=== PATIENT | male | born 1960 | race Caucasian/White ===

== ENCOUNTER 2018-02-06 11:37 | Emergency (ER) | payer BC ==
[2018-02-06 11:42] VITALS: RESP 18
[2018-02-06] MEDS ORDERED: SODIUM CHLORIDE 0.9% 1,000 ML IV STA (11:52)
--- NOTE | 2018-02-06 11:58 | ED ---
General Adult HPI - General Chief complaint: Abdominal Pain Stated complaint: Constipation sent by ME Time Seen by Provider: 02/06/18 11:46 Source: patient, RN notes reviewed, old records reviewed Mode of arrival: ambulatory Limitations: no limitations - History of Present Illness Initial comments: 57-year-old male presenting for evaluation of generalized abdominal pain. Pain is been intermittent over the past 3 days. Describes the pain as 3 out of 10 with occasional episodes progressing to 7 out of 10. Describes a sharp and crampy in nature. He does report decreased stool output over the past 3 days. However he has had 2 or 3 loose stools. No vomiting, intermittent nausea and decreased appetite. No fever or chills. No chest pain. No lower extremity pain. No chest pain - Related Data Home Medications Medication Instructions Recorded Confirmed Acetaminophen Tab [Tylenol Tab] 1,000 mg PO Q6HR PRN 02/06/18 02/06/18 Bisacodyl [Dulcolax] 5 mg PO DAILY PRN 02/06/18 02/06/18 Enalapril/Hydrochlorothiazide 1 tab PO BID 02/06/18 02/06/18 [Enalapril-Hctz 10-25 mg Tablet] Allergies Allergy/AdvReac Type Severity Reaction Status Date / Time No Known Allergies Allergy Verified 02/06/18 11:56 Review of Systems ROS Statement: Those systems with pertinent positive or pertinent negative responses have been documented in the HPI. ROS Other: All systems not noted in ROS Statement are negative. Past Medical History Past Medical History: Hypertension History of Any Multi-Drug Resistant Organisms: None Reported Past Surgical History: No Surgical Hx Reported Past Psychological History: No Psychological Hx Reported Smoking Status: Current every day smoker Past Alcohol Use History: Occasional Past Drug Use History: Marijuana General Exam Limitations: no limitations General appearance: alert, in no apparent distress Head exam: Present: atraumatic, normocephalic Eye exam: Present: normal appearance, PERRL ENT exam: Present: normal exam Neck exam: Present: normal inspection. Absent: tenderness, meningismus Respiratory exam: Present: normal lung sounds bilaterally. Absent: respiratory distress, wheezes Cardiovascular Exam: Present: regular rate, normal rhythm GI/Abdominal exam: Present: soft, distended. Absent: tenderness, guarding, rebound Extremities exam: Present: normal inspection, normal capillary refill. Absent: pedal edema Neurological exam: Present: alert, oriented X3, CN II-XII intact. Absent: motor sensory deficit Psychiatric exam: Present: normal affect, normal mood Skin exam: Present: warm, intact, diaphoretic. Absent: cyanosis Course Vital Signs 02/06/18 02/06/18 02/06/18 11:39 11:50 13:09 Temperature 98.2 F Pulse Rate 113 H 106 H 100 Respiratory 18 18 18 Rate Blood Pressure 138/104 160/103 134/97 O2 Sat by Pulse 98 95 94 L Oximetry Medical Decision Making - Medical Decision Making 57-year-old male with crampy generalized abdominal pain, nausea, and several episodes of loose stool. X-ray is nonspecific, no obstruction. Patient has mild leukocytosis and hemoglobin of 18 likely representing some hemoconcentration secondary to dehydration from decreased oral intake. Creatinine mildly elevated above baseline 1.4, normal lactic acid. CT obtained , shows some mild acute pancreatitis however this is not really consistent with examination, there is no epigastric tenderness. No right upper quadrant tenderness. Patient does not drink alcohol. He is reevaluated, continues to have no abdominal tenderness. Vital signs are stable and improved. He will be discharged with oral hydration. Return with worsening or changing symptoms. - Lab Data Result diagrams: 02/06/18 12:21 02/06/18 12:21 Lab Results 02/06/18 02/06/18 02/06/18 Range/Units 12:21 12:21 12:21 WBC 13.1 H (3.8-10.6) k/uL RBC 6.13 H (4.30-5.90) m/uL Hgb 18.4 H (13.0-17.5) gm/dL Hct 53.8 H (39.0-53.0) % MCV 87.7 (80.0-100.0) fL MCH 29.9 (25.0-35.0) pg MCHC 34.1 (31.0-37.0) g/dL RDW 14.0 (11.5-15.5) % Plt Count 244 (150-450) k/uL Neutrophils % 75 % Lymphocytes % 16 % Monocytes % 5 % Eosinophils % 2 % Basophils % 1 % Neutrophils # 9.7 H (1.3-7.7) k/uL Lymphocytes # 2.0 (1.0-4.8) k/uL Monocytes # 0.7 (0-1.0) k/uL Eosinophils # 0.3 (0-0.7) k/uL Basophils # 0.1 (0-0.2) k/uL PT (9.0-12.0) sec INR (<1.2) APTT (22.0-30.0) sec Sodium 138 (137-145) mmol/L Potassium 3.9 (3.5-5.1) mmol/L Chloride 102 (98-107) mmol/L Carbon Dioxide 20 L (22-30) mmol/L Anion Gap 16 mmol/L BUN 28 H (9-20) mg/dL Creatinine 1.42 H (0.66-1.25) mg/dL Est GFR (CKD-EPI)AfAm 64 (>60 ml/min/1.73 sqM) Est GFR (CKD-EPI)NonAf 55 (>60 ml/min/1.73 sqM) Glucose 110 H (74-99) mg/dL Plasma Lactic Acid Greg 1.3 (0.7-2.0) mmol/L Calcium 10.1 (8.4-10.2) mg/dL Total Bilirubin 1.0 (0.2-1.3) mg/dL AST 34 (17-59) U/L ALT 27 (21-72) U/L Alkaline Phosphatase 78 (38-126) U/L Total Protein 8.1 (6.3-8.2) g/dL Albumin 4.7 (3.5-5.0) g/dL Amylase 43 (30-110) U/L Lipase 118 (23-300) U/L 02/06/18 Range/Units 12:21 WBC (3.8-10.6) k/uL RBC (4.30-5.90) m/uL Hgb (13.0-17.5) gm/dL Hct (39.0-53.0) % MCV (80.0-100.0) fL MCH (25.0-35.0) pg MCHC (31.0-37.0) g/dL RDW (11.5-15.5) % Plt Count (150-450) k/uL Neutrophils % % Lymphocytes % % Monocytes % % Eosinophils % % Basophils % % Neutrophils # (1.3-7.7) k/uL Lymphocytes # (1.0-4.8) k/uL Monocytes # (0-1.0) k/uL Eosinophils # (0-0.7) k/uL Basophils # (0-0.2) k/uL PT 10.4 (9.0-12.0) sec INR 1.1 (<1.2) APTT 24.6 (22.0-30.0) sec Sodium (137-145) mmol/L Potassium (3.5-5.1) mmol/L Chloride (98-107) mmol/L Carbon Dioxide (22-30) mmol/L Anion Gap mmol/L BUN (9-20) mg/dL Creatinine (0.66-1.25) mg/dL Est GFR (CKD-EPI)AfAm (>60 ml/min/1.73 sqM) Est GFR (CKD-EPI)NonAf (>60 ml/min/1.73 sqM) Glucose (74-99) mg/dL Plasma Lactic Acid Greg (0.7-2.0) mmol/L Calcium (8.4-10.2) mg/dL Total Bilirubin (0.2-1.3) mg/dL AST (17-59) U/L ALT (21-72) U/L Alkaline Phosphatase (38-126) U/L Total Protein (6.3-8.2) g/dL Albumin (3.5-5.0) g/dL Amylase (30-110) U/L Lipase (23-300) U/L Disposition Clinical Impression: Abdominal pain, Gastroenteritis Disposition: HOME SELF-CARE Condition: Good Instructions: Abdominal Pain (ED), Acute Nausea and Vomiting (ED) Is patient prescribed a controlled substance at d/c from ED?: No Referrals: None,Stated [Primary Care Provider] - 1-2 days Mila Kennedy MD [REFERRING] - 1-2 days Time of Disposition: 13:57
[2018-02-06 12:47] LABS: Basophils # (A) 0.1 k/uL (0-0.2); Basophils % (A) 1 %; Eosinophils # (A) 0.3 k/uL (0-0.7); Eosinophils % (A) 2 %; HCT 53.8 % (39.0-53.0); HGB 18.4 gm/dL (13.0-17.5); Lymphocytes % (A) 16 %; MCH 29.9 pg (25.0-35.0); MCHC 34.1 g/dL (31.0-37.0); MCV 87.7 fL (80.0-100.0); Mean Platelet Volume 7.3; Monocytes # (A) 0.7 k/uL (0-1.0); Monocytes % (A) 5 %; Neutrophils # (A) 9.7 k/uL (1.3-7.7); Neutrophils % (A) 75 %; Platelet Count 244 k/uL (150-450); RBC 6.13 m/uL (4.30-5.90); WBC 13.1 k/uL (3.8-10.6)
[2018-02-06 13:02] LABS: Albumin 4.7 g/dL (3.5-5.0); Calcium 10.1 mg/dL (8.4-10.2); Potassium 3.9 mmol/L (3.5-5.1); Total Protein 8.1 g/dL (6.3-8.2)
[2018-02-06 13:11] LABS: INR 1.1 (<1.2); Partial Thromboplastin Time 24.6 sec (22.0-30.0); Prothrombin Time 10.4 sec (9.0-12.0)
--- NOTE | 2018-02-06 13:14 | XR ---
EXAMINATION TYPE: XR KUB DATE OF EXAM: 02/06/2018 12:47 PM CLINICAL HISTORY: Abdominal pain and constipation for 4 days TECHNIQUE: Single upright image of the abdomen is obtained. COMPARISON: None. FINDINGS: Paucity of bowel gas is seen in the distal colon and rectum. Scattered gas is seen in nondi lated small bowel loops. Gas and fecal material is seen in nondilated colon. There is no visceromegal y, pneumoperitoneum, or abnormal calcification appreciated. The lung bases are clear and the osseous structures are intact. Probable small hiatal hernia seen. IMPRESSION: Although there is a paucity of distal colonic and rectal stool/bowel gas no proximal vivek l dilatation is seen to suggest obstruction.
--- NOTE | 2018-02-06 13:15 | CT ---
EXAMINATION TYPE: CT abdomen pelvis w con DATE OF EXAM: 02/06/2018 COMPARISON: NONE HISTORY: 57-year-old male pain and constipation for 3 days TECHNIQUE: Contiguous axial scanning of the abdomen and pelvis following administration of 100 ml Iso leobardo 300 IV contrast. Delayed images through the kidneys and coronal/sagittal reconstructions performed. CT DLP: 1617.4 mGycm Automated exposure control for dose reduction was used. FINDINGS: Heart normal size with small pericardial fluid. Lung bases clear without pleural effusion. Small hiatal hernia. Liver mildly enlarged at 18.6 cm. Slightly low attenuation may reflect fatty infiltration. Portal zachary ous system is patent. No biliary ductal dilatation. Gallbladder, adrenal glands, kidneys, spleen with anterior splenule within normal limits. There is focal fat stranding along the inferior aspect of the pancreatic head, refer to axial images 46 through 50 and coronal image 50. Adjacent mild circumferential wall thickening of the second porti on of the duodenum likely reactive inflammation. No mesenteric or retroperitoneal lymphadenopathy. No dilated small bowel, free fluid, or free air. No abnormal fluid collection. Normal appendix. No significant stool burden. No pericolonic inflammatory change. Bladder urine distended. Central prostatic calcifications. Prostate gland measures 4.1 cm wide. No ab normal fluid collection in the pelvis or pelvic lymphadenopathy. Bones: Degenerative disc disease L5-S1. Mild degenerative disc disease at additional levels in the th oracic spine. Facet arthropathy lower lumbar spine. IMPRESSION: 1. EDEMATOUS CHANGE WITH FOCAL FAT STRANDING ALONG THE INFERIOR PANCREATIC HEAD SUGGESTS MILD ACUTE P ANCREATITIS. NO ABNORMAL FLUID COLLECTION. FOLLOW-UP AFTER SUCCESSFUL TREATMENT RECOMMENDED. 2. MILD HEPATOMEGALY (18.6 CM) WITH POSSIBLE MILD FATTY INFILTRATION. 3. SMALL HIATAL HERNIA.
[2018-02-06 14:22] VITALS: BP 127/88; PULSE 97; TEMP 98.8
== END 2018-02-06 14:22 | disposition home or self-care (01) ==
LOC: EC 11:37
DX: K52.9 Noninfective gastroenteritis and colitis, unspecified (principal); K85.90 Acute pancreatitis without necrosis or infection, unspecified; K59.00 Constipation, unspecified; D72.829 Elevated white blood cell count, unspecified; I10 Essential (primary) hypertension; F17.200 Nicotine dependence, unspecified, uncomplicated; Z79.899 Other long term (current) drug therapy
CPT/HCPCS: 36415; 80053; 82150; 83605; 83690; 85025; 85610; 85730; 74018; 74177; 99285; 96360; 96361; Q9967

== ENCOUNTER → 2018-06-23 | Outpatient (CLI) | payer BC ==
[2018-06-23 17:59] LABS: Basophils # (A) 0.1 k/uL (0-0.2); Basophils % (A) 1 %; Eosinophils # (A) 0.9 k/uL (0-0.7); Eosinophils % (A) 8 %; HCT 49.8 % (39.0-53.0); HGB 15.9 gm/dL (13.0-17.5); Lymphocytes # (A) 2.8 k/uL (1.0-4.8); Lymphocytes % (A) 25 %; MCH 28.7 pg (25.0-35.0); MCV 89.7 fL (80.0-100.0); Mean Platelet Volume 6.9; Monocytes # (A) 0.7 k/uL (0-1.0); Monocytes % (A) 6 %; Neutrophils # (A) 6.2 k/uL (1.3-7.7); Neutrophils % (A) 57 %; Platelet Count 260 k/uL (150-450); RBC 5.55 m/uL (4.30-5.90); RDW 13.9 % (11.5-15.5); WBC 10.9 k/uL (3.8-10.6)
[2018-06-23 22:31] LABS: Albumin 4.5 g/dL (3.80-4.90); Albumin/Globulin Ratio 2.05 (1.60-3.17); Anion Gap 5.1 mmol/L (4.00-12.00); Calcium 9.2 mg/dL (8.7-10.3); Carbon Dioxide 26.9 mmol/L (21.6-31.8); Globulin 2.2 g/dL (1.6-3.3); Potassium 3.7 mmol/L (3.5-5.5); Total Bilirubin 0.4 mg/dL (0.3-1.2); Total Protein 6.7 g/dL (6.2-8.2)
== END | disposition home or self-care (01) ==
LOC: LABWHC1 16:57
PROVIDERS: ATTEND Internal Medicine Cardiovascular Disease
DX: I10 Essential (primary) hypertension (principal); R53.83 Other fatigue
CPT/HCPCS: 36415; 80053; 84443; 85025

== ENCOUNTER → 2021-06-25 | Outpatient (CLI) | payer BC ==
[2021-06-25 14:30] LABS: Basophils # (A) 0.12 X 10*3/uL (0.00-0.10); Basophils % (A) 1.5 %; Eosinophils # (A) 1.07 X 10*3/uL (0.04-0.35); Eosinophils % (A) 13.5 %; HCT 52.2 % (39.6-50.0); HGB 16.5 g/dL (13.0-17.0); Immature Grans, Automated 0.4 %; Lymphocytes # (A) 1.77 X 10*3/uL (0.90-5.00); Lymphocytes % (A) 22.3 %; MCH 28.9 pg (27.0-32.0); MCHC 31.6 g/dL (32.0-37.0); MCV 91.4 fL (80.0-97.0); Mean Platelet Volume 10.7 fL (9.5-12.2); Monocytes # (A) 0.59 X 10*3/uL (0.20-1.00); Monocytes % (A) 7.4 %; NRBC Per 100 WBC 0 /100 WBCS (0.0-0.0); Neutrophils # (A) 4.35 X 10*3/uL (1.80-7.70); Neutrophils % (A) 54.9 %; Platelet Count 242 X 10*3/uL (140-440); RBC 5.71 X 10*6/uL (4.40-5.60); RDW 13.6 % (11.5-14.5); WBC 7.93 X 10*3/uL (4.50-10.00)
[2021-06-25 14:49] LABS: Chol/HDL Ratio 5.18 Ratio; LDL Cholesterol,Calculated 111.3 mg/dL (0.0-131.0)
[2021-06-25 15:09] LABS: ALT 29 U/L (10-49); AST 30 U/L (14-35); African American GFR (CKD) 62.3 (60.0-200.0); Albumin 4.3 g/dL (3.8-4.9); Albumin/Globulin Ratio 1.64 (1.60-3.17); Alkaline Phosphatase 79 U/L (41-126); BUN/Creat Ratio 13.33 Ratio (12.00-20.00); Blood Urea Nitrogen 18.8 mg/dL (9.0-27.0); Calcium 9.3 mg/dL (8.7-10.3); Carbon Dioxide 21.8 mmol/L (20.0-27.5); Chloride 101 mmol/L (96-109); Globulin 2.6 g/dL (1.6-3.3); Glucose 112 mg/dL (70-110); Non-African American GFR(CKD) 53.8 (60.0-200.0); Potassium 3.6 mmol/L (3.5-5.5); Sodium 137 mmol/L (135-145); Total Protein 6.8 g/dL (6.2-8.2)
== END | disposition home or self-care (01) ==
LOC: LABWHC1 08:20
PROVIDERS: ATTEND Internal Medicine
DX: I10 Essential (primary) hypertension (principal); F52.21 Male erectile disorder
CPT/HCPCS: 36415; 80053; 80061; 84153; 84402; 84403; 85025